=== PATIENT | female | born 1970 | race Two or more races ===

== ENCOUNTER 2023-04-02 09:42 | Emergency (ER) | payer BC ==
[~2023-04-02] VITALS: Ht 165.1 cm; Wt 74.0 kg
[2023-04-02 09:48] VITALS: BP 128/65; PULSE 88; RESP 20; TEMP 98.3; O2SAT 98
[2023-04-02] MEDS ORDERED: CIPHCO RIGHT EAR (10:22)
[2023-04-02] MEDS ORDERED: CEFP200T13 MT (10:22)
[2023-04-02] MEDS ORDERED: ACET-2708 MT (10:22)
== END 2023-04-02 10:21 | disposition home or self-care (01) ==
LOC: ER 09:42
DX: H66.91 Otitis media, unspecified, right ear (principal); Z98.890 Other specified postprocedural states; Z90.49 Acquired absence of other specified parts of digestive tract; Z90.710 Acquired absence of both cervix and uterus
CPT/HCPCS: 99283